=== PATIENT | female | born 1945 | race Caucasian/White ===

== ENCOUNTER 2016-07-30 11:00 | Inpatient (IN) | payer MEDICARE ==
[~2016-07-30] VITALS: Ht 172.7 cm; Wt 94.3 kg
[2016-07-30] VITALS (13 sets, daily range): BP systolic 128–157; BP diastolic 66–87; PULSE 70–88; RESP 14–18; O2SAT 97–100
[2016-07-30] MEDS: Gentamicin 200 mg/100 mL D5W IV SCH ×4 (06:00→15:59)
[~2016-07-30 11:00] MED LIST: AMLO5TAB2 PO; Bupivacaine Liposome 1.3% 20 mL Inj NERVEBLOCK ONE; CHOL5000 PO; CHON400C PO; CYCL10TA9 PO; CeFAZolin Inj 2 GM in IV Premix 1 EACH IV ONE; ESTR1PAT82 TRANSDERM; FLUT16SP NS; Lactated Ringer's 1,000 ML IV ONE; NAPR220C16 PO; OMEG-38 PO; zolpidem
[2016-07-30] MEDS ORDERED: CeFAZolin Inj 2 gm / 50mL D5W IV ONE (11:17)
[2016-07-30] MEDS ORDERED: LOTE5DRO3 BOTH_EYES (11:32)
[2016-07-30] MEDS ORDERED: PROG100C6 PO (11:32)
[2016-07-30] MEDS ORDERED: 0.9% Sodium Chloride 100 ML ONE (15:39)
[2016-07-30] MEDS ORDERED: Tranexamic Acid 100 mg/mL 10 mL Inj ONE (15:39)
[2016-07-30] MEDS ORDERED: Bupivacaine Liposome 1.3% 20 mL Inj ONE (15:40)
[2016-07-30] MEDS ORDERED: Lactated Ringer's 1,000 ML IV SCH (16:22)
[2016-07-30] MEDS ORDERED: Lactated Ringer's 500 ML IV PRN (16:22)
--- NOTE | 2016-07-30 16:22 | PCM.HPANE ---
Patient Data Surgeon Admitting Provider: Attending Provider:Marco Barrios MD Primary Care Physician:Yan Monk MD Other Provider:[facility] [facility] Reason for Visit Left Knee Arthritis LEFT KNEE ARTHRITIS Ht/WT & BMI Height (Feet): 5 Height (Inches): 8.00 Weight (Kilograms): 90.500 Body Mass Index 30.00 Allergies Coded Allergies: Penicillins (Verified Allergy, Unknown, rash, 07/26/16) ciprofloxacin (Verified Allergy, Unknown, rash, 07/26/16) paroxetine (Verified Allergy, Unknown, 07/26/16) Uncoded Allergies: DARK CHOCOLATES/RED LUZ (Allergy, Unknown, migraines, 07/26/16) GREEN MANGOES (Allergy, Unknown, facial swelling, 07/26/16) Past Anesthesia History Anesthesia History: Denies:: Abnormal Airway, Anesthesia Reactions (nitrous made her paranoid at dentist), Difficult Intubation, Fam Anesthesia Reaction, Fam Malignant Hypertherm, Malignant Hyperthermia Diabetes History Hx Diabetes?: No MRSA MRSA: No (post op lap sterling [place]- not MRSA) Medications Hypertension Medication: Yes Home Meds Incl Beta Ava: No Reported Medications Progesterone,Micronized (Progesterone)100 Mg Flrgctx064 Mg PO DAILY 07/30/16 Loteprednol Etabonate (Lotemax)5 Ml Drops.susp5 Ad BOTH_EYES QID 07/30/16 [zolpidem ] No Conflict Check10 Mg DAILY 07/26/16 Chondroitin Sulfate A Sodium (Optiflex-C)400 Mg Csjqxyg662 Mg PO DAILY 07/26/16 Naproxen Sodium 220 Mg Wptjkhl000 Mg PO BID PRN For Pain Ref 0 07/26/16 Fluticasone Propionate (Fluticasone Propionate Nasal)16 Gm [place].susp1 [place] NS BID #16 GM Ref 0 07/26/16 [place]-3/Dha/Epa/Fish Oil (Fish Oil 1,000 mg Softgel)1 Each Capsule1 Each PO DAILY 07/26/16 Cyclobenzaprine 10 Mg Eauxyl19 Mg PO TID PRN Spasm 07/26/16 Cholecalciferol (Vitamin D3) (Vitamin D3)5,000 Unit Capsule5,000 Unit PO DAILY 07/26/16 Amlodipine 5 Mg Tablet5 Mg PO DAILY Ref 0 07/26/16 Discontinued Reported Medications Estradiol 0.1 mg/24 hr Patch 1 Each Patch.tdwk1 Patch TRANSDERM WEEKLY Ref 0 07/26/16 History HEENT History: Positive for:: Hearing Problem (high register left ear) Denies:: Abnormal Airway Cataracts ("forming") Difficult Intubation Dysphagia Glaucoma Sinus Problem TMJ Cardiovascular History: Positive for:: Hypertension Denies:: AICD Abdominal Aortic Aneurism Atrial Fibrillation Chest Pain Congestive Heart Failure Coronary Artery Disease Edema Heart Murmur Irregular Heartbeat Pacemaker Peripheral Vascular Rheumatic Fever Hx of Respiratory Problem?: No Respiratory History: Denies:: Asthma COPD Emphysema Oxygen Administration Pneumonia Tuberculosis Use of C-PAP Machine Use of Inhalers / NEBS Hx Neurologic Problems?: Yes Neurological History: Positive for:: Headaches (related to food allergies) Denies:: Alzheimer's Disease CVA Multiple Sclerosis Parkinson's Disease Seizures TIA Other Neurological Pertinent: prior hx of concussions with LOC horse riding accidents- last 1992, no history residual Hx of GI Problems?: Yes Gastrointestinal History: Positive for:: Gastroesphageal Reflux (hx of ) Hiatal Hernia (lap sterling hx and re-do) Denies:: Gall Bladder Disease Gastrointestinal Bleeding Heartburn Hepatitis Hx of Problems?: No Genitourinary History: Denies:: Kidney Stones Urinary Tract Infection Female Hx: Denies:: Currently Problems with Breasts? (prior bx- benign ) Skin History: Denies:: History Skin Disorders? Pressure Ulcers Hx Musculoskeletal Problems?: Yes Musculoskeletal History: Positive for:: Degenerative Joint Joint Replacement (left shoulder ) Musculoskeletal Trauma (left knee current admission problem) Osteoarthritis Denies:: Back Injury Fibromyalgia Myasthenia Gravis Hx of Psycho/Social Problems?: No Psycho Social History: Denies:: Anxiety Hx Depression (after of spouse, allergic to med given- no meds now) Hx Surgeries?: Yes (shoulder replacement, lap sterling x 2, knee scope) Hx Any Other Health Problems?: Yes Other History: Denies:: Cancer (pre cancerous) Thyroid Disease History Blood Transfusions: Positive for:: Accept Blood Products? Denies:: Blood Transfusions Hx Diabetes: No Hx Alcohol Use: YesAlcoholic Drinks Per Day: once every two to three monthsHx Substance Use: NoHave You Smoked inLast 12 mo: No Stop/Bang S-Snoring: Do You Snore Loudly: No T-Tired: feel tired, fatigued: No O-Obsered: Observed not breath: No P-Blood Pressure: treated: No B- Body Mass Index > 35 kg/m2: No A- Age over 50: Yes N- Neck Large Circumference: No G- Gender Male: No DAIJA Total Score: 1 Risk Assessment Category Category 1A: Patient has history of documented sleep apnea, and HAS NOT received any narcotic, sedative or anesthesia administration during this stay. Category 1B: Patient has history of documented sleep apnea, and HAS received any narcotic , sedative or anesthesia administration during this stay Category 2: Patient has SUSPECTED Obstructive Sleep Apnea, and HAS received any narcotic , sedative or anesthesia administration during this stay. Category 3: Patient has SUSPECTED Obstructive Sleep Apnea and HAS NOT received narcotic, sedative or anesthesia administration during this stay. Category 4: Outpatient in Procedural Areas with known sleep apnea or who screen positive for High Risk via the STOP/BANG questionnaire. Exam Exam Vital Signs Vital Signs Date Time Temp Pulse Resp B/P Pulse Ox O2 Delivery O2 Flow Rate FiO2 07/30/16 11:23 36.6 70 18 137/73 97 Room Air General Appearance: Alert, Oriented X3, Cooperative, No Acute Distress HEENT/AIRWAY: MP 2, Neck Movement (FROM), Mouth Opening (3 FBMO) Lungs: Clear to Auscultation, Normal Air Movement Heart: Exam Unremarkable, Regular Rate/Rhythm, No Murmurs/Rubs/Gallops Meds/Labs/Diagnostics Admission Meds Current Medications Lactated Ringer's (Lr) 1,000 ml @ 120 mls/hr Q8H20M ONCE IV Last administered on 07/30/16t 11:12; Start 07/30/16 at 05:00; Stop 07/30/16 at 13:19; Status DC Plan Impression Patient chart reviewed, patient interviewed and anesthestic plan with risks, benefits, and alternatives discussed, and informed consent obtained. NPO Status: 07/29/16 ASA Physical Status: ASA2 Mod Systemic Disease Anesthetic Plan: GA Bene/Risks/Altern/Consents: Yes HP Complete Prior to Induction: Yes Rm Hairston MD Jul 30, 2016 13:23
[2016-07-30] MEDS ORDERED: MetoCLOpramide 5 mg/mL 2 mL Inj IVPUSH PRN ×2 (16:25→17:55)
[2016-07-30] MEDS ORDERED: EPHEDrine Sulfate 50 mg/mL Inj IVPUSH PRN (16:25)
[2016-07-30] MEDS ORDERED: Phenylephrine 10,000 mCg/mL Inj IVPUSH PRN (16:25)
[2016-07-30] MEDS ORDERED: Labetalol 5 mg/mL 4 mL Inj IV PRN (16:25)
[2016-07-30] MEDS ORDERED: Ondansetron 2 mg/mL 2 mL Inj IVPUSH PRN ×2 (16:25→17:55)
[2016-07-30] MEDS ORDERED: Atropine 0.4 mg/mL Inj IVPUSH PRN (16:25)
[2016-07-30] MEDS ORDERED: HYDROmorphone 1 mg/mL Inj IVPUSH PRN (16:25)
[2016-07-30] MEDS ORDERED: Bupivacaine-MPF 0.25%/EPI 30 mL Inj INJ ONE (16:47)
[2016-07-30] MEDS ORDERED: Gentamicin 40 mg/mL 2 mL Inj IRRIGATION ONE (16:47)
[2016-07-30] MEDS ORDERED: Lactated Ringer's 1,000 ML IV ONE (17:49)
[2016-07-30] MEDS ORDERED: Vancomycin Dose per Pharmacist XX ONE (17:55)
[2016-07-30] MEDS ORDERED: Magnesium Hydroxide 10 mL Oral Concentration PO PRN (17:55)
[2016-07-30] MEDS ORDERED: diphenhydrAMINE 25 mg Capsule PO PRN (17:55)
[2016-07-30] MEDS ORDERED: HYDROcodone-APAP 7.5-325 mg Tablet PO PRN (17:55)
[2016-07-30] MEDS ORDERED: Polyethylene Glycol (PEG) 17 Gm Powder PO PRN (17:55)
[2016-07-30] MEDS ORDERED: Sodium Biphos-Phos 133 mL Enema RECTAL PRN (17:55)
[2016-07-30] MEDS ORDERED: hydrOXYzine Inj 25 MG/1 mL SDV IM ONE (18:07)
--- NOTE | 2016-07-30 18:10 | PCM.ANEP1 ---
Post Anesthesia Phase 1 PACU Phase 1 Assessment Vital Signs Vital Signs Date Time Temp Pulse Resp B/P Pulse Ox O2 Delivery O2 Flow Rate FiO2 07/30/16 11:23 36.6 70 18 137/73 97 Room Air Anesthetic Administered: GA Level of Alertness: Awake, talking CORNEJO's with Equal Strength: Yes Pain: Yes (GIVING POSTOP PAIN MEDICATIONS) Oxygen Delivery: Nasal Cannula Lungs: Clear to Auscultation, Normal Air Movement Dermatome Level: Full Sensation Rm Hairston MD Jul 30, 2016 18:10
--- NOTE | 2016-07-30 18:21 | PCM.ANEP2 ---
Post Anesthesia Evaluation ASA/CMS Post Anesthesia VS in Patient's Normal Range?: Yes Resp Stable; Airway Patent?: Yes CV Function & Hydration Stable: Yes Mental Status Recovered?: Yes Pain control Satisfactory?: Yes N/V Control Satisfactory?: Yes Rm Hairston MD Jul 30, 2016 18:20
--- NOTE | 2016-07-30 18:35 | DRSVH ---
PROCEDURE: X-RAY LEFT KNEE, ONE OR TWO VIEWS ([id number]) INDICATIONS: postop TECHNIQUE: 2 view(s) of the knee acquired. COMPARISON: None. FINDINGS: Bones: Patient is status post knee joint arthroplasty. Hardware components are in expected position s. Visualized bony structures are intact. Soft tissues: Overlying postoperative changes are noted. IMPRESSION: Right knee arthroplasty as above. Dictated by: Kassi Joaquin M.D. on 07/30/2016 at 18:33 Approved by: Kassi Joaquin M.D. on 07/30/2016 at 18:34
[2016-07-30] MEDS: Ketorolac 15 mg/mL Inj IVPUSH PRN (18:40)
[2016-07-30] MEDS: fentaNYL-PF 50 mCg/mL 2 mL Inj IVPUSH PRN ×2 (18:55→19:00)
[2016-07-30] MEDS: Senna-Docusate 8.6-50 mg Tablet PO SCH (20:30)
[2016-07-30] MEDS ORDERED: Propofol 10,000 mCg/mL 20 mL Inj ONE (20:47)
[2016-07-30] MEDS ORDERED: Ondansetron 2 mg/mL 2 mL Inj ONE (20:47)
[2016-07-30] MEDS ORDERED: Dexamethasone 4 mg/mL Inj ONE (20:47)
[2016-07-30] MEDS ORDERED: HYDROmorphone 2 mg/mL Inj ONE (20:47)
[2016-07-30] MEDS ORDERED: fentaNYL-PF 50 mCg/mL 2 mL Inj ONE (20:47)
[2016-07-30] MEDS ORDERED: MetoCLOpramide 5 mg/mL 2 mL Inj ONE (20:47)
[2016-07-30] MEDS: Progesterone 100 mg Micronized Capsule PO SCH (21:00)
[2016-07-30] MEDS: HYDROmorphone 0.5 mg/0.5 mL iSecure Syringe IVPUSH PRN (21:07)
[2016-07-30] MEDS: HYDROcodone-APAP 5-325 mg Tablet PO PRN (23:30)
[2016-07-31] MEDS: Sodium Chloride LOK Flush 10 mL Syringe IV SCH ×3 (00:30→17:35)
--- NOTE | 2016-07-31 01:23 | OP ---
[address] [address] OPERATIVE REPORT PATIENT: RIVKA SOLORIO : 1945 MR#: [id number] ADMIT: 07/30/2016 JOB ID: [id number] DATE OF SURGERY: 07/30/2016 PREOPERATIVE DIAGNOSIS(ES): Osteoarthritis left knee, medial compartment. POSTOPERATIVE DIAGNOSIS(ES): Tricompartment osteoarthritis. SURGEON: Marco Barrios MD. FLIGHT COMMUNICATIONS OPERATOR: Nora Kruger PA-C. Gift Consultant required due to the complexity of the operation. INDICATIONS: This woman comes in complaining that she has intractable pain related knee arthritis. The majority of the arthritis is the medial compartment, however, she has lateral sided symptoms and elects for an arthroscopic diagnostic evaluation to make a decision of partial versus total knee replacement. She understands and accepts the potential for risks and complications, which includes, but is not limited to infection, thromboembolic, neurovascular events, as well as potential for implant failure. PROCEDURE: The patient was prepped and draped in usual sterile fashion. An anteromedial portal was utilized and a diagnostic arthroscopy was carried out. Early degenerative changes of the lateral compartment were encountered. The decision was therefore made to proceed with a total knee replacement. The knee was lavaged of irrigant and the arthroscope was removed. An anteromedial approach was made to the knee. Dissection carried down. The patella was subluxed laterally, cut transversely, and was sized initially to an 8, and later downsized to a 7 femoral component. Femoral 7 block was placed and chamfer cuts and drill holes were made. The tibia was cut with the extramedullary tool and the bone fragment was removed. This was sized to an E chamfer cutting block, fixed in appropriate position, rotation, punch and drill stabilization was made. Trial reduction was performed and a 10 mm polyethylene was chosen. Medial constrained version which provided excellent tracking. Patella was cut transversely, sized to a 32 patellar component, and drill holes were made. Pressurized lavage was followed by pressurized cementation. All meniscal tissue and osteophytes were removed from the knee. Excess cement was removed during the curing process. The final construct was assembled. The wounds were irrigated with further sterile irrigant. The tourniquet was let down. Hemostasis was achieved. Deep Hemovac drain was left. Deep closure with #2 Quill deep. Dilute Betadine lavage had been utilized. Deep closure with #2 Quill deep followed by 2-0 Vicryl, 3-0, and a 4-0 intracuticular stitch. Steri-Strips applied. Patient returned to the recovery room in stable condition. She tolerated procedure well. There were no complications.
--- NOTE | 2016-07-31 02:16 | NUR ---
Transfer to [facility] Pt arrived to [facility] [id number] at 2019 via hospital bed w/ OR staff. Pt a&ox3, very friendly and adjusting well. Pt oriented to room and call light, pain reported at acceptable level, placed on cpox r/t substantial opiate dosage in PACU and pt has good O2 sat. Overall pt is doing fantastically well considering fresh post op.
--- NOTE | 2016-07-31 02:20 | NUR ---
Ambulation Pt needed to urinate, placed BSC next to bed and pt easily transferred w/o any assistance. Pt will continue to call for safety. Pt is doing uncommonly well given fresh post op, very friendly and talkative. Delightful patient.
[2016-07-31] MEDS: HYDROmorphone 0.5 mg/0.5 mL iSecure Syringe IVPUSH PRN (04:14)
[2016-07-31 05:07] VITALS: BP 123/74; PULSE 76; RESP 18; O2SAT 97
--- NOTE | 2016-07-31 05:25 | NUR ---
Hemovac Pulled Pt dislodged hemovac from tubing when getting into bed, reattached it herself, NAC noted some blood and discovered the issue. Per protocol hemovac drain was removed, covered with gauze and tegaderm and rewrapped w/ bashir bandage.
[2016-07-31] MEDS: Gentamicin 200 mg/100 mL D5W IV SCH ×2 (06:00)
[2016-07-31] MEDS: HYDROcodone-APAP 5-325 mg Tablet PO PRN ×5 (06:13→22:33)
[2016-07-31] MEDS: LOTEPREDNOL BOTH_EYES SCH ×4 (06:15→20:28)
[2016-07-31] MEDS ORDERED: Vancomycin Inj 1,250 MG in 0.9% Sodium Chloride 250 ML IV ONE (07:00)
[2016-07-31 07:12] LABS: BASOPHILS % (AUTO) 0.2 % (0-3); EOSINOPHILS % (AUTO) 0.1 % (0-5); MONOCYTES % (AUTO) 8.5 % (4-12); Mean Corpuscular Hemoglobin 28.2 pg (27.0-35.0); Mean Corpuscular Volume 86.9 fL (81-100); NEUTROPHILS % (AUTO) 77.1 % (40-74); Platelet Count 198 bil/L (150-400)
[2016-07-31] MEDS ORDERED: 0.9% Sodium Chloride 100 ML ONE (10:38)
[2016-07-31] MEDS: Senna-Docusate 8.6-50 mg Tablet PO SCH ×2 (10:42→20:35)
[2016-07-31] MEDS: Fluticasone 0.05% 15 Spray/2 Gm 16 Gm Nasal Spray NASAL SCH ×2 (10:42→20:29)
[2016-07-31 10:45] VITALS: BP 144/78; PULSE 76; RESP 18; O2SAT 100
--- NOTE | 2016-07-31 11:09 | NUR ---
Pain Patient reported 6/10 knee pain. 2 tabs of [place] given. Denies nausea. Patient repositions self for comfort. Call light and tray table within reach. Will continue to monitor patient hourly.
--- NOTE | 2016-07-31 13:03 | PCM.PNORTH ---
Subjective Date of Service: Jul 31, 2016 Visit Information: Reason for Visit Left Knee Arthritis Surgery/Surgery Date Carmen MARTINEZ 07/30/16 Post-Op Day # Date of Admission: Jul 30, 2016 at 20:46 Hospital Day # Subjective Found patient awake and alert. No complaints pain at this time. Patient is sitting up in bed and well positioned and in good spirits. Patient does indicate she has not had physical therapy yet and it is early afternoon. I have encouraged patient participated fully with therapy and advised her that she will likely discharge tomorrow on postop day #2. Patient indicates she does have someone at home who will help her and that she has 2 small steps to enter her home. Postop General: No Complaints, No Chest Pain, Good Appetite Pain Management: PO Objective Exam Objective Alert and oriented 3 and pleasant. Interoperative dressing clean dry and intact. Toe wiggle and sensation intact at the left lower extremity distally. Calf and thigh are soft and nontender. Martins catheter absent. Wound drain absent. No physical therapy yet as of this time. Vital Signs and I/O Vital Sign - Last Date Time Temp Pulse Resp B/P Pulse Ox O2 Delivery O2 Flow Rate FiO2 07/31/16 10:45 36.5 76 18 144/78 100 Room Air 07/30/16 23:49 2.00 Intake and Output 07/30/16 07/30/16 07/31/16 Cumulative From/Thru 14:59 22:59 06:59 07/26/16 12:39 - 07/31/16 05:31 Intake Total 1865 ml 450 ml 2315 ml Output Total 350 ml 940 ml 1290 ml Balance 1515 ml -490 ml 1025 ml Intake Oral 450 ml 450 ml IV Total 1865 ml 1865 ml Output Urine Total 350 ml 700 ml 1050 ml Drainage Total 240 ml 240 ml # Bowel Movements 0 0 Lab & Micro Results Laboratory Tests Test 07/31/16 06:50 White Blood Count 9.5th/mm3 (3.8-10.1) Red Blood Count 4.65mil/mm3 (3.90-5.20) Hemoglobin 13.1g/dL (12.0-15.6) Hematocrit 40.4% (35.0-46.0) Mean Corpuscular Volume 86.9fL (81-100) Mean Corpuscular Hemoglobin 28.2pg (27.0-35.0) Mean Corpuscular Hemoglobin Concent 32.4% (32.0-37.0) Red Cell Distribution Width 13.8% (12.3-15.4) Platelet Count 198bil/L (150-400) Neutrophils (%) (Auto) 77.1% (40-74) Lymphocytes (%) (Auto) 14.0% (14-46) Monocytes (%) (Auto) 8.5% (4-12) Eosinophils (%) (Auto) 0.1% (0-5) Basophils (%) (Auto) 0.2% (0-3) Result Diagram: 07/31/16 0650 General Appearance: Alert, Oriented X3, Cooperative, No Acute Distress Extremities: No Compartment Syndrom Noted, Thigh & Calf Soft/Nontender Postop Sensory Motor: Distal Motor Intact, Movement in Toes, Distal Sensation Intact SURGICAL WOUND : Drain Location Body Site: Knee Wound Drainage Type: Hemovac Activity: Activity per PT, Ambulate with PT (weightbearing as tolerated at the left lower extremity using a front wheeled walker) Catheters: None Assessment & Plan Impression Patient is a 71-year-old female who is undergone a left total knee arthroplasty performed on 07/30/[address] Marco Barrios. Patient has an aggressive nature and is anxious to begin gait training. She is looking forward to discharge as soon as possible. Problems: Plan Postoperative day #1 from left total knee arthroplasty performed on 07/30/[address] Marco Barrios. Weightbearing as tolerated on the left lower extremity using a front wheeled walker. Continue formal physical therapy for mobility, safety and gait. Continue by mouth pain medications as needed. Continue ASA 325 mg EC by mouth daily while inpatient. Transition to ASA 81 mg EC by mouth twice a day for 6 weeks postop for DVT prophylaxis. Martins is absent. Wound drain is absent. Ice and elevate as needed for pain control. Take pain medications as directed. Wound may be showered in 3-4 days it is clean and dry and has been dry for 24 hours. Otherwise wound should be covered until seen in office in 2 weeks. Follow-up in 2 weeks at [facility] orthopedic clinic on prearranged appointment with mid-level provider for wound check and suture removal. Follow-up in 6 weeks at [facility] orthopedic clinic with Dr. Marco Barrios with left two-view knee x-rays on arrival. Anticipate discharge to home on postop day #3 with family as caregiver. VTE Prophylaxis: SCDs (right lower extremity), Other (ASA 325 mg EC by mouth daily while in house for DVT prophylaxis.) Mak Cordoba PA-C Jul 31, 2016 13:03
[2016-07-31 13:40] VITALS: BP 115/69; PULSE 72; RESP 18; O2SAT 98
--- NOTE | 2016-07-31 14:32 | NUR ---
Social Work- Initial Assessment Data: See Initial Assessment. Pt is a 71 year old female admitted 07/30/16 for left knee arthritis per H&P. Pt's insurance is [employer]. Pt's PCP is Yan Monk MD. EMR reviewed. SW met with pt at bedside regarding discharge plan, SW role explained. Pt alert and oriented x3. Pt resides in [facility] where she remains independent with ADLs. Pt uses no DME and drives. Pt has wound care history in 2005, could not recall the [employer] company she used. Pt has no SNF history. Pt has no LTC or VA benefits. PT cleared pt for home with outpt PT. Pt has outpt therapy scheduled. Pt has DPOA on file, DPOA is Gayle Osman, daughter, . Pt to discharge home with friend Kevin Contreras [phone] to transport. No anticipated discharge needs. SW will continue to follow. Assessment: [place]. Plan: Pt to discharge home with friend Kevin to transport via POV. No anticipated discharge needs. SW will continue to follow. EDISON Braun Addendum: 07/31/16 at 1436 by ROSMERY VENTURA Amended: Links added.
[2016-07-31] MEDS: Ketorolac 15 mg/mL Inj IVPUSH PRN (16:02)
[2016-07-31 20:20] VITALS: BP 118/65; PULSE 87; RESP 18; O2SAT 93
[2016-07-31] MEDS: Progesterone 100 mg Micronized Capsule PO SCH (20:31)
[2016-08-01 02:19] VITALS: BP 130/76; PULSE 88; RESP 18; O2SAT 95
[2016-08-01] MEDS: HYDROcodone-APAP 5-325 mg Tablet PO PRN ×2 (02:21→06:21)
[2016-08-01] MEDS: Sodium Chloride LOK Flush 10 mL Syringe IV SCH ×2 (02:21→09:19)
[2016-08-01 05:05] VITALS: BP 141/79; PULSE 78; RESP 18; O2SAT 96
[2016-08-01] MEDS: Ketorolac 15 mg/mL Inj IVPUSH PRN (05:41)
--- NOTE | 2016-08-01 06:12 | NUR ---
Pain Pt reports pain in L knee generally 7-8/10. CSM intact, pain upon flexion. Ice provided, prn for pain Q4h, and toradol IV once this shift. Pt ambulates to BR with FWW. IV saline lock. No complaints of SOB or chest pain. Care continues
[2016-08-01] MEDS: LOTEPREDNOL BOTH_EYES SCH ×2 (06:22→11:49)
[2016-08-01] MEDS ORDERED: oxyCODONE-Acetamin 5-325 mg Tablet PO PRN (07:45)
--- NOTE | 2016-08-01 07:58 | PCM.PNORTH ---
Subjective Date of Service: Aug 01, 2016 Visit Information: Reason for Visit Left Knee Arthritis Surgery/Surgery Date Carmen MARTINEZ 07/30/16 Post-Op Day # Date of Admission: Jul 30, 2016 at 20:46 Hospital Day # Subjective On patient sleeping this morning and easily awakened. Patient in good spirits. Changed interoperative dressing this morning and discussed discharge this afternoon after physical therapy. No complaints of pain at this time. Discussed discontinuing IV pain medications today and advised I will place patient on Percocet 5/325 in hopes of better pain control without IV pain meds. I will also asked nursing to use Vistaril which I had mentioned to the patient. Postop General: No Complaints, No Shortness of Breath, No Chest Pain, Good Appetite Pain Management: PO, IV Push Objective Exam Objective Alert and oriented 3 and pleasant. Interoperative dressing is removed this morning and wound is found to be intact with no drainage or focal erythema or focal swelling. This was replaced with an ABD and fishnet-type dressing and Silverlon is rewet and replaced this morning. Calf and thigh are soft and nontender. Toe wiggle and sensation are intact at left lower extremity distally. Martins and wound drain are absent Gait 88 feet yesterday with formal physical therapy. Vital Signs and I/O Vital Sign - Last Date Time Temp Pulse Resp B/P Pulse Ox O2 Delivery O2 Flow Rate FiO2 08/01/16 05:05 36.7 78 18 141/79 96 Room Air 07/30/16 23:49 2.00 Intake and Output 07/31/16 07/31/16 08/01/16 Cumulative From/Thru 15:00 23:00 07:00 07/26/16 12:39 - 08/01/16 06:35 Intake Total 1420 ml 400 ml 4135 ml Output Total 1200 ml 1100 ml 3590 ml Balance 220 ml -700 ml 545 ml Intake Oral 1420 ml 400 ml 2270 ml IV Total 1865 ml Output Urine Total 1200 ml 1100 ml 3350 ml Drainage Total 240 ml # Bowel Movements 0 0 Result Diagram: 07/31/16 0650 General Appearance: Alert, Oriented X3, Cooperative, No Acute Distress Extremities: No Compartment Syndrom Noted, Thigh & Calf Soft/Nontender Postop Sensory Motor: Distal Motor Intact, Movement in Toes, Distal Sensation Intact SURGICAL WOUND : Drain Location Body Site: Knee Wound Drainage Type: Hemovac Activity: Activity per PT, Ambulate with PT (weightbearing as tolerated at the left lower extremity using a front wheeled walker) Catheters: None Assessment & Plan Impression Patient is a 71-year-old female who is postop day #2 normal left total knee arthroplasty performed on 07/30/2016. She has performed well with physical therapy yesterday and I believe she will be ready for discharge to home today. Problems: Plan Postoperative day #2 from left total knee arthroplasty performed on 07/30/[address] Marco Barrios. Weightbearing as tolerated on the left lower extremity using a front wheeled walker. Continue formal physical therapy for mobility, safety and gait. Patient has arranged to begin outpatient physical therapy soon after discharge. Continue by mouth pain medications using Percocet 5/325 and Vistaril as needed. Nursing please discontinue any IV pain medications today. Home medication Rx' s placed in chart. Continue ASA 325 mg EC by mouth daily while inpatient. Transition to ASA 81 mg EC by mouth twice a day for 6 weeks postop for DVT prophylaxis. Martins is absent. Home DVT prophylaxis Rx placed in chart Wound drain and Martins are absent. Ice and elevate as needed for pain control. Take pain medications as directed. Wound may be showered in 3-4 days it is clean and dry and has been dry for 24 hours. Otherwise wound should be covered until seen in office in 2 weeks. Work on range of motion at the knee from full extension to a minimum of 90 flexion. Follow-up in 2 weeks at [facility] orthopedic clinic on prearranged appointment with mid-level provider for wound check and suture removal. Follow-up in 6 weeks at [facility] orthopedic clinic with Dr. Marco Barrios with left two-view knee x-rays on arrival. Anticipate discharge to home today with family as caregivers on postop day #2, 08/01/2016.. VTE Prophylaxis: SCDs (right lower extremity), DAYDAY Hose, Other (ASA 325 mg EC by mouth daily while in house for DVT prophylaxis. Transition to ASA 81 mg EC by mouth twice a day 6 weeks postop starting postdischarge for DVT prophylaxis. ) Mak Cordoba PA-C Aug 01, 2016 07:58
--- NOTE | 2016-08-01 08:01 | PCM.DIORTH ---
Ortho Discharge Instruction Date of Service: Aug 01, 2016 Dates of Hospitalization Date of Hospital Admission Jul 30, 2016 at 20:46 Providers Admitting Physician: Marco Barrios MD Primary Care Physician: Yan Monk MD Attending Physician: Marco Barrios MD Diet Discharge Diet: No restrictions Activity Discharge Activity-General: Try not to overdue, Be up and about, Balance rest and activity, Elevate & ice extremity, Ice incision 3-5 time/day for 20min, Activity as pain allows, Activity as energy allows, No driving while taking narcotic Left Lower Extremity: Weight Bearing as tolerated Discharge Assist Device: Front Wheeled Walker Dressing and Incisional Care Discharge Dressing Care: Keep dressing clean, dry & intact, Change soiled dressing Discharge Hygiene: May shower after (patient may shower after 3-4 days postop and if wound has been dry for 24 hours. Wound should be kept covered otherwise until seen in office in 2 weeks.), DO NOT soak incision under water, NO bathtub , hot tub or whirlpool Additional Instructions Discharge Instructions Postoperative day #2 from left total knee arthroplasty performed on 07/30/[address] Marco Barrios. Weightbearing as tolerated on the left lower extremity using a front wheeled walker. Continue formal physical therapy for mobility, safety and gait. Patient has arranged to begin outpatient physical therapy soon after discharge. Continue by mouth pain medications using Percocet 5/325 and Vistaril as needed. Nursing please discontinue any IV pain medications today. Home medication Rx' s placed in chart. Continue ASA 325 mg EC by mouth daily while inpatient. Transition to ASA 81 mg EC by mouth twice a day for 6 weeks postop for DVT prophylaxis. Martins is absent. Home DVT prophylaxis Rx placed in chart Wound drain and Martins are absent. Ice and elevate as needed for pain control. Take pain medications as directed. Wound may be showered in 3-4 days it is clean and dry and has been dry for 24 hours. Otherwise wound should be covered until seen in office in 2 weeks. Work on range of motion at the knee from full extension to a minimum of 90 flexion. Follow-up in 2 weeks at [facility] orthopedic clinic on prearranged appointment with mid-level provider for wound check and suture removal. Follow-up in 6 weeks at [facility] orthopedic clinic with Dr. Marco Barrios with left two-view knee x-rays on arrival. Anticipate discharge to home today with family as caregivers on postop day #2, 08/01/2016.. Follow Up Plan Follow Up Plan Patient will be seen at 2 weeks, 6 weeks and 12 weeks postoperatively. Patient will be seen when necessary in the interim. Follow-up Provider (F9): Marco Barrios MD Mid-level Provider (F9): Nora Kruger PA-C Follow-up appointment: Weeks (Patient will be seen at 2 weeks, 6 weeks and 12 weeks postoperatively. Patient will be seen when necessary in the interim.) Call your provider for: Fever, Chills, Shortness of breath, Vomitting, Drainage at incision Mak Cordoba PA-C Aug 01, 2016 08:01
[2016-08-01] MEDS ORDERED: OXYC1TAB24 PO (08:12)
[2016-08-01] MEDS ORDERED: ASPI-973 PO (08:12)
[2016-08-01] MEDS ORDERED: HYDR25CA PO (08:12)
[2016-08-01] MEDS ORDERED: DOCU-41 PO (08:12)
[2016-08-01] MEDS ORDERED: hydrOXYzine Pamoate 25 mg Capsule PO PRN (08:15)
--- NOTE | 2016-08-01 08:18 | PCM.DC.ORT ---
Discharge Summary Date of Service: Aug 01, 2016 Date of Hospital Admission: Jul 30, 2016 at 20:46 Date of Surgery: Jul 30, 2016 Date of Discharge: Aug 01, 2016 Procedures Performed: Left total knee arthroplasty Hospital Course: Patient was admitted to the preoperative care unit on 07/30/2016 and upon processing was taken to the operating room where her procedure was performed without incident. Patient was awakened in the operating room and transferred to the postoperative care unit where she recovered from anesthesia, was ultimately transferred to the orthopedic care unit where she performed well with formal physical therapy and was recommended for discharge on postop day #2. Problems: (1) Osteoarthritis Status: Acute ICD Code: M19.90 Disposition: Discharged home with family as caregiver Orthopedic Follow up Plan: In Two Weeks in my clinic (Patient will be seen at 2 weeks, 6 weeks and 12 weeks postoperatively. Patient will be seen when necessary in the interim.) Discharge Instructions: Postoperative day #2 from left total knee arthroplasty performed on 07/30/[address] Marco Barrios. Weightbearing as tolerated on the left lower extremity using a front wheeled walker. Continue formal physical therapy for mobility, safety and gait. Patient has arranged to begin outpatient physical therapy soon after discharge. Continue by mouth pain medications using Percocet 5/325 and Vistaril as needed. Nursing please discontinue any IV pain medications today. Home medication Rx' s placed in chart. Continue ASA 325 mg EC by mouth daily while inpatient. Transition to ASA 81 mg EC by mouth twice a day for 6 weeks postop for DVT prophylaxis. Martins is absent. Home DVT prophylaxis Rx placed in chart Wound drain and Martins are absent. Ice and elevate as needed for pain control. Take pain medications as directed. Wound may be showered in 3-4 days it is clean and dry and has been dry for 24 hours. Otherwise wound should be covered until seen in office in 2 weeks. Work on range of motion at the knee from full extension to a minimum of 90 flexion. Follow-up in 2 weeks at [facility] orthopedic clinic on prearranged appointment with mid-level provider for wound check and suture removal. Follow-up in 6 weeks at [facility] orthopedic clinic with Dr. Marco Barrios with left two-view knee x-rays on arrival. Anticipate discharge to home today with family as caregivers on postop day #2, 08/01/2016.. Management Plan: Patient will be seen at 2 weeks, 6 weeks and 12 weeks postoperatively. Patient will be seen when necessary in the interim. ([zolpidem ]) 10 MG DAILY Amlodipine (Amlodipine) 5 Mg Tablet 5 MG PO DAILY Aspirin (Aspirin) 81 Mg Tablet 81 MG PO BID Patient should begin this medication post discharge. Cholecalciferol (Vitamin D3) (Vitamin D3) 5,000 Unit Capsule 5,000 UNIT PO DAILY Chondroitin Sulfate A Sodium (Optiflex-C) 400 Mg Capsule 400 MG PO DAILY Cyclobenzaprine (Cyclobenzaprine) 10 Mg Tablet 10 MG PO TID PRN PRN Spasm Docusate Sodium (Colace) 100 Mg Capsule 100 MG PO BID Fluticasone Propionate (Fluticasone Propionate Nasal) 16 Gm [place].susp 1 SPRAY NS BID Hydroxyzine Pamoate (Vistaril) 25 Mg Capsule 25-50 MG PO Q4-6H PRN PRN restlessness Loteprednol Etabonate (Lotemax) 5 Ml Drops.susp 5 AD BOTH_EYES QID [place]-3/Dha/Epa/Fish Oil (Fish Oil 1,000 mg Softgel) 1 Each Capsule 1 EACH PO DAILY Progesterone,Micronized (Progesterone) 100 Mg Capsule 100 MG PO DAILY oxyCODONE-Acetaminophen 5-325 mg (oxyCODONE-Acetaminophen 5-325 mg) 1 Each Tablet 1-2 TAB PO Q4-6H PRN PRN For Pain Mak Cordoba PA-C Aug 01, 2016 08:18
--- NOTE | 2016-08-01 09:18 | NUR ---
Social Work-readiness for discharge: Data:EMR reviewed. PT is on day 2 of hospitalization for left knee per H&P. Pt is not medically stable for discharge anticipate later today or tomorrow. PT has cleared pt for outpt services. Pt to return home with friend Kevin when medically stable. Pt's friend to provide transport home. No discharge needs identified.SW will continue to follow. Assessment:Pt who would benifit from outpt services. Plan:Pt to discharge home when medically stable via POV. No discharge needs identified.SW will continue to follow. EDISON Liu
[2016-08-01] MEDS: Senna-Docusate 8.6-50 mg Tablet PO SCH (09:19)
[2016-08-01] MEDS: Fluticasone 0.05% 15 Spray/2 Gm 16 Gm Nasal Spray NASAL SCH (09:20)
[2016-08-01 09:22] VITALS: BP 117/64; PULSE 79; RESP 16; O2SAT 96
--- NOTE | 2016-08-01 10:21 | NUR ---
Discharge Note Pt expressed understanding of all discharge instructions, medications/Rx, follow up appt, and post op care. Care Notes provided. Pt ready for discharge home with all belongings.
--- NOTE | 2016-08-01 10:59 | NUR ---
Social Work-discharge: Data:EMR reviewed. Pt is on day 2 of hospitalization for left knee per H&P. Pt is medically stable for discharge today. PT has cleared pt for home with outpt services. Pt is already set up with services for outpt PT. No discharge needs identified. All updated and agreeable to plan. Assessment:Pt to benefit from outpt services. Plan:Pt to discharge home today via POV. No discharge needs identified. All updated and agreeable to plan. EDISON Liu
--- NOTE | 2016-08-01 12:30 | NUR ---
Mervin Hose/IV Mervin hose measured and ordered to size. IV d/c'd intact.
--- NOTE | 2016-08-01 13:27 | NUR ---
Pt d/c'd home today after PT. Pt comfortable with all discharge instructions. Medications received from pharmacy and Pt has not items in the safe.
== END 2016-08-01 13:10 | disposition home or self-care (01) | DRG 470 ==
LOC: SAS 11:00 → OSC 20:46
PROVIDERS: ADMIT Orthopaedic Surgery; ATTEND Orthopaedic Surgery
PROC: 0YJ Anatomical Regions, Lower Extremities, Inspection (ICD-10-PCS; 2016-07-30)
PROC: 0SRD0J9 Replacement of Left Knee Joint with Synthetic Substitute, Cemented, Open Approach (ICD-10-PCS; principal; 2016-07-30 12:30)
DX: M17.12 Unilateral primary osteoarthritis, left knee (principal); I10 Essential (primary) hypertension; Z96.612 Presence of left artificial shoulder joint; Z79.82 Long term (current) use of aspirin